=== PATIENT | male | born 1955 | race Caucasian/White ===

== ENCOUNTER 2024-10-12 11:26 | Emergency (ER) | payer MEDICARE, OTHER ==
[2024-10-12] MEDS: Ketorolac 30 MG/ML SDV IM STA (11:44)
== END 2024-10-12 12:08 | disposition home or self-care (01) ==
LOC: MW.ED 11:26
DX: M10.9 Gout, unspecified (principal); I10 Essential (primary) hypertension; E78.00 Pure hypercholesterolemia, unspecified; Z75.8 Other problems related to medical facilities and other health care; Z79.899 Other long term (current) drug therapy
CPT/HCPCS: 96372; 99283; J1885